=== PATIENT | male | born 1990 | race Caucasian/White ===

== ENCOUNTER 2022-08-28 13:28 | Emergency (ER) | payer SELFPAY ==
[2022-08-28] VITALS (8 sets, daily range): BP systolic 95–117; BP diastolic 57–78; PULSE 60–81; RESP 17–20; TEMP 36.7–37; O2SAT 94–100; BMI 21.1
--- NOTE | 2022-08-28 13:53 | HMH.EDGENADL ---
Discharge Plan Disposition Patient Disposition: Home, Self-Care Condition: Good Chief Complaint: Weakness Referrals Follow up/Referrals: Provider,Hima, [Primary Care Provider] - See instructions Prisca Miller DO [Staff Physician] - See instructions (Follow up to establish care after ER, needs soon appt given hx of adrenal issues) Activity Restrictions/Add. Instructions Additional Instructions/Restrictions: Continue to use your stress dose steroids follow-up with primary care physician to establish ongoing management of laboratory data and your congenital condition. Return to the ER for any new or worsening symptoms. Clinical Impressions Clinical Impression: Adrenal insufficiency, Viral URI Instructions Patient Instructions: DI for Viral Upper Respiratory Infection -- Adult, Adrenal Crisis Discharge ED Provider: Ravi Liu General Adult HPI General Chief complaint: Weakness Stated complaint: Dehydration Time Seen by Provider: 08/28/22 13:44 Mode of Arrival: Ambulatory Limitations: No Limitations Description of Symptoms (Recalled from ER Triage Doc. by RN): PT WITH CONGENITAL ADRENAL HYPERPLASIA, STATES HE HAS FELT WEAK FOR A COUPLE DAYS. HAS TAKEN EXTRA STERIODS WITHOUT IMPROVEMENT History of Present Illness HPI narrative: 32-year-old male with a history of congenital adrenal hyperplasia presents with a complaint of feeling weak. Patient was here as a visitor in the department while his mother was being seen and decided to sign in. States that he has felt weak for a couple days has taken an extra dose of his fludrocortisone and prednisone with no relief. He denies vomiting states that he has had mild nausea has had congestion rhinorrhea and intermittent mild shortness of breath but no productive cough no fevers or chills. States that he is from [place] and has been here for several months has not established with a primary care provider was managed by a long-term prescription by an personnel director in [place]. He denies any other associated symptoms at this time. Related Data Allergies Allergy/AdvReac Type Severity Reaction Status Date / Time phenobarbital Allergy Verified 08/28/22 13:52 [facility] Medical History Congenital adrenal hyperplasia Family History Other No significant family history Social History Smoking Status: Never smoker alcohol intake: never current occupational status: employed Travel in the last 8 weeks: Inside the [place] ROS Obtained: Yes Systems reviewed as appropriate & no additional complaints except as documented Physical Exam General General appearance: alert and in no apparent distress Head Head exam: atraumatic and normocephalic ENT ENT exam: Present mucous membranes moist Neck Neck exam: Present trachea midline Chest Chest inspection: Present normal inspection Respiratory Respiratory exam: Present normal lung sounds bilaterally; Absent respiratory distress Cardiovascular Cardiovascular exam: Present regular rate Abdominal Exam Abdominal exam: Present soft; Absent distention or tenderness Neurological Exam Neurological exam: Present alert and oriented X3 Psychiatric Psychiatric exam: Present normal affect Skin Skin exam: Present warm, dry and intact Medical Decision Making Medical Records Medical records reviewed: Yes I reviewed the patient's medical records. Haile Inquiry Pt receiving controlled substance: No Vital Signs: 08/28/22 13:31 08/28/22 15:00 08/28/22 15:30 Temperature 98.1 F Temperature Source Oral Pulse Rate 71 64 Pulse Rate [Radial] 81 Respiratory Rate 17 20 18 Blood Pressure 103/72 L 104/70 L Blood Pressure [Right Arm] 103/71 L Blood Pressure Mean 79 76 Blood Pressure Mean [Right Arm] 81 Blood Pressure Source [Right Arm] Aut
--- NOTE | 2022-08-28 14:01 | PC.NURSE ---
DR. HOWARD AT BEDSIDE
--- NOTE | 2022-08-28 14:07 | XR_ITS ---
FINAL REPORT CLINICAL HISTORY: dyspnea FINDINGS: The heart size is normal. The mediastinum is within normal limits. There is no acute cardiopulmonary process. There is no pleural effusion. There is no pneumothorax. The bony thorax is intact. IMPRESSION: No acute cardiopulmonary process. Reviewed, Interpreted and Dictated by Petros Fofana III, MD Transcribed by Romain Powers Authenticated and . [facility]
[2022-08-28 14:13] LABS: Basophils # 0.2 K/mm3 (0-0.2); Basophils % 1.3 % (0.1-2.0); Eosinophils # 0.2 K/mm3 (0.0-0.4); Eosinophils % 1.9 % (0.1-12.0); Hematocrit 45.6 % (42.0-52.0); Lymphocytes # 1.6 K/mm3 (0.7-4.5); Lymphocytes % 12.9 % (10-50); Mean Corpuscular Hemoglobin 30.3 pg (27.0-31.2); Mean Corpuscular Volume 86.6 fl (80-94); Mean Platelet Volume 8.1 fl (7.4-10.4); Monocytes # 0.4 K/mm3 (0.1-1.0); Monocytes % 3.1 % (1.7-9.3); Neutrophils # 9.9 K/mm3 (1.8-7.8); Neutrophils % 80.8 % (37.0-80.0); Platelet Count 365 K/mm3 (142-424); Red Blood Count 5.27 M/mm3 (4.60-6.20); Red Cell Distribution Width 12.9 % (11.5-17.5); White Blood Count 12.2 K/mm3 (4.8-10.8)
--- NOTE | 2022-08-28 14:16 | PC.NURSE ---
XR AT BEDSIDE
[2022-08-28 14:17] LABS: Chloride 94 mmol/L (98-107)
[2022-08-28 14:18] LABS: Potassium 5.5 mmoL/L (3.5-5.1); Sodium 130 mmol/L (136-145)
[2022-08-28 14:20] LABS: Blood Urea Nitrogen 25 mg/dl (9-20); Creatinine Clearance Estimated 91 mL/min (50-200); Estimated Glomerular Filt Rate 70 ml/min (>60); GFR (African American) 85 ML/MIN (>60)
[2022-08-28 14:21] LABS: Anion Gap 17.5 mEq/L (5-15); Calcium 10.4 mg/dl (8.4-10.2); Carbon Dioxide 24 mmol/L (22.0-30.0); Glucose 131 mg/dl (74-100)
--- NOTE | 2022-08-28 14:28 | PC.NURSE ---
PT TO BR AT THIS TIME
[2022-08-28 14:39] LABS: Coronavirus 19, PCR Not Detected (NotDetected); Influenza A, PCR Not Detected (NotDetected); Influenza B, PCR Not Detected (NotDetected)
--- NOTE | 2022-08-28 15:07 | PC.NURSE ---
ROUNDED ON PT, NO NEEDS AT THIS TIME. CALL LIGHT WITHIN REACH
--- NOTE | 2022-08-28 16:18 | PC.NURSE ---
ROUNDED ON PT, REQUESTED SOMETHING TO EAT. DIETARY NOTIFIED. PT WITHOUT FURTHER NEEDS
--- NOTE | 2022-08-28 16:39 | PC.NURSE ---
ED MD AT BEDSIDE TO REEVALUATE PT
--- NOTE | 2022-08-28 17:00 | PC.NURSE ---
REGULAR SUPPER TRAY SET UP, PT WITHOUT NEEDS AT THIS TIME
--- NOTE | 2022-08-28 17:52 | PC.NURSE ---
ROUNDED ON PT, NO NEEDS AT THIS TIME
== END 2022-08-28 18:49 | disposition home or self-care (01) ==
PROVIDERS: Emergency Provider Student in an Organized Health Care Education/Training Program
DX: E27.49 Other adrenocortical insufficiency (principal); E25.0 Congenital adrenogenital disorders associated with enzyme deficiency; R53.1 Weakness; R06.02 Shortness of breath; Z20.822 Contact with and (suspected) exposure to COVID-19; J34.89 Other specified disorders of nose and nasal sinuses; R11.0 Nausea; Z88.0 Allergy status to penicillin
CPT/HCPCS: 71045; 80048; 85025; 96361; 96374; 96375; 99284; C9803; J2405; U0003; U0005

== ENCOUNTER 2022-11-27 12:47 | Emergency (ER) | payer OTHER, SELFPAY ==
[2022-11-27] VITALS (10 sets, daily range): BP systolic 76–97; BP diastolic 17–61; PULSE 51–65; RESP 15–20; TEMP 36.6–36.7; O2SAT 98–100; BMI 18.6
--- NOTE | 2022-11-27 13:00 | HMH.EDGENADL ---
Discharge Plan Disposition Patient Disposition: Home, Self-Care Condition: Fair Prescriptions Prescriptions: New fludrocortisone 0.1 mg tablet 0.1 mg PO BID Qty: 14 0RF ondansetron 8 mg tablet,disintegrating 8 mg PO QID PRN (Reason: Nausea And Vomiting) Qty: 16 0RF Referrals Follow up/Referrals: Provider,Referral, [Primary Care Provider] - See instructions Activity Restrictions/Add. Instructions Additional Instructions/Restrictions: Follow-up with a primary care physician within the next few days. Drink plenty of fluids. Take all medications as prescribed. Preferably start taking your fludrocortisone today before going to bed. Return to the emergency department immediately if you feel worse in any way. Clinical Impressions Clinical Impression: Adrenal insufficiency Discharge ED Provider: Nawaf Higuera General Adult HPI General Chief complaint: Weakness Stated complaint: vomiting,diarrhea Time Seen by Provider: 11/27/22 12:57 History of Present Illness HPI narrative: The patient presents to the emergency department complaining of nausea and vomiting for the last few days. He has a history of congenital adrenal hypoplasia and takes steroid supplementation daily. Over the last few days he has been vomiting up his medications. Therefore he was come to the emergency department for treatment. He feels a little bit dehydrated and generalized weakness. He denies any diarrhea. Related Data Previous Rx's Medication Instructions Recorded fludrocortisone 0.1 mg tablet 0.1 mg PO BID #14 tabs 11/27/22 ondansetron 8 mg disintegrating 8 mg PO QID PRN Nausea And 11/27/22 tablet Vomiting #16 tabs Allergies Allergy/AdvReac Type Severity Reaction Status Date / Time phenobarbital Allergy Verified 08/28/22 13:52 [facility] Disclaimer: The information contained in this section may have been updated after the patient was seen, as this information can be updated by other users. Medical History Congenital adrenal hyperplasia Family History Other No significant family history Social History Smoking Status: Current every day smoker alcohol intake: never current occupational status: employed Travel in the last 8 weeks: [place] the [place] ROS Obtained: Yes All systems reviewed & no additional complaints except as documented Physical Exam General General appearance: alert, in no apparent distress and other (Alopecia) Head Head exam: atraumatic Eye Eye exam: Present normal appearance ENT ENT exam: Present normal exam Neck Neck exam: Present normal inspection and full ROM; Absent tenderness or meningismus Chest Chest inspection: Present normal inspection and symmetric chest wall rise; Absent tenderness Respiratory Respiratory exam: Present normal lung sounds bilaterally; Absent respiratory distress or accessory muscle use Cardiovascular Cardiovascular exam: Present regular rate, normal rhythm and normal heart sounds Abdominal Exam Abdominal exam: Present soft and normal bowel sounds; Absent distention, tenderness, heel tap sign, Smith's sign, Rovsing's sign, tenderness at McBurney's Point or mass Extremities Exam Extremities exam: Present normal inspection and full ROM Back Exam Back exam: Present normal inspection; Absent CVA tenderness (R) or CVA tenderness (L) Neurological Exam Neurological exam: Present alert and oriented X3 Psychiatric Psychiatric exam: Present normal affect and normal mood Skin Skin exam: Present warm, dry, intact and normal color Medical Decision Making Haile Inquiry Pt receiving controlled substance: No Vital Signs: 11/27/22 12:49 11/27/22 13:31 11/27/22 14:00 Temperature 97.9 F Temperature Source Oral Pulse Rate 51 L 56 L Pulse Rate [Left] 65 Respiratory Rate 16 18 18
[2022-11-27 13:29] LABS: Basophils # 0.1 K/mm3 (0-0.2); Basophils % 1.5 % (0.1-2.0); Eosinophils # 0.3 K/mm3 (0.0-0.4); Eosinophils % 3.5 % (0.1-12.0); Hematocrit 46.4 % (42.0-52.0); Hemoglobin 16.4 g/dL (14.1-18.0); Lymphocytes # 2.8 K/mm3 (0.7-4.5); Lymphocytes % 31.5 % (10-50); Mean Corpuscular HGB Conc 35.5 g/dL (31.8-35.4); Mean Corpuscular Hemoglobin 30.6 pg (27.0-31.2); Mean Corpuscular Volume 86.3 fl (80-94); Mean Platelet Volume 8.1 fl (7.4-10.4); Monocytes # 0.6 K/mm3 (0.1-1.0); Monocytes % 6.8 % (1.7-9.3); Neutrophils % 56.7 % (37.0-80.0); Platelet Count 380 K/mm3 (142-424); Red Blood Count 5.37 M/mm3 (4.60-6.20); Red Cell Distribution Width 12.2 % (11.5-17.5); White Blood Count 8.9 K/mm3 (4.8-10.8)
[2022-11-27 13:34] LABS: Chloride 95 mmol/L (98-107); Potassium 4.7 mmoL/L (3.5-5.1)
[2022-11-27 13:35] LABS: Sodium 127 mmol/L (136-145)
[2022-11-27 13:37] LABS: Anion Gap 14.7 mEq/L (5-15); Blood Urea Nitrogen 20 mg/dl (9-20); Calcium 9.5 mg/dl (8.4-10.2); Carbon Dioxide 22 mmol/L (22.0-30.0); Creatinine Clearance Estimated 82 mL/min (50-200); Estimated Glomerular Filt Rate 70 ml/min (>60); GFR (African American) 85 ML/MIN (>60); Glucose 77 mg/dl (74-100)
--- NOTE | 2022-11-27 14:00 | PC.NURSE ---
rounded on pt at this time, given warm blanket and tv remote.
--- NOTE | 2022-11-27 15:53 | PC.NURSE ---
PT APPOINTMENT MADE WITH DR GREY 11/29/2022 AT 1000
== END 2022-11-27 16:05 | disposition home or self-care (01) ==
PROVIDERS: Emergency Provider Emergency Medicine
DX: E27.40 Unspecified adrenocortical insufficiency (principal); F17.210 Nicotine dependence, cigarettes, uncomplicated
CPT/HCPCS: 80048; 85025; 96361; 96374; 96375; 96376; 99285; J2405

== ENCOUNTER 2022-12-08 17:14 | Observation (INO) | payer OTHER, SELFPAY ==
[2022-12-08] VITALS (11 sets, daily range): BP systolic 88–103; BP diastolic 37–64; PULSE 58–77; RESP 18–20; TEMP 36.6–37.3; O2SAT 96–100; BMI 17.9
[2022-12-08 19:08] LABS: Alanine Aminotransferase 20 U/L (12-78); Albumin Level 4.6 g/dl (3.5-5.0); Albumin/Globulin Ratio 1.8 (1.1-1.8); Alkaline Phosphatase 41 U/L (38-126); Anion Gap 14.1 mEq/L (5-15); Aspartate Amino Transferase 45 U/L (17-59); Bilirubin,Total 0.9 mg/dl (0.2-1.3); Blood Urea Nitrogen 20 mg/dl (9-20); Carbon Dioxide 25 mmol/L (22.0-30.0); Chloride 92 mmol/L (98-107); Creatinine Clearance Estimated 79 mL/min (50-200); Estimated Glomerular Filt Rate 70 ml/min (>60); GFR (African American) 85 ML/MIN (>60); Globulin 2.5 g/dL (1.3-3.2); Glucose 74 mg/dl (74-100); Potassium 5.1 mmoL/L (3.5-5.1); Sodium 126 mmol/L (136-145); Total Protein,Serum 7.1 g/dl (6.3-8.2)
--- NOTE | 2022-12-08 19:36 | HMH.EDGENADL ---
Discharge Plan Disposition Patient Disposition: Home, Self-Care Condition: Good Prescriptions Prescriptions: No Action fludrocortisone 0.1 mg tablet 0.1 mg PO BID Referrals Follow up/Referrals: Provider,Referral, MD [Primary Care Provider] - See instructions Clinical Impressions Clinical Impression: Adrenal insufficiency, Encounter for medication refill, Nausea & vomiting Instructions Patient Instructions: DI for Diarrhea and Traveler's Diarrhea -- Adult, DI for Diarrhea and Traveler's Diarrhea -- Child, DI for Nausea -- Adult, DI for Nausea -- Child Discharge ED Provider: Terry Teran General Adult HPI <Andi Leach DO - Last Filed: 12/08/22 19:43> General Chief complaint: Nausea/Vomiting/Diarrhea Stated complaint: NEEDS MEDS TO BE REFILLED Time Seen by Provider: 12/08/22 18:47 Mode of Arrival: Ambulatory Source of Information: Patient Limitations: No Limitations Description of Symptoms (Recalled from ER Triage Doc. by RN): PT STATES HE HAS HAD VOMITING, DECREASED APPETITIE, AND FATIGUE FOR 2 DAYS, DENIES FEVER, STATES HE HAS CONGENTIAL ADRENAL DEFIENCY DISORDER AND HAS BEEN OUT OF HIS MEDS FOR 7 DAYS History of Present Illness HPI narrative: 32yo M presents to the ER secondary to vomiting. Reports he has congenital primary adrenal insufficiency disorder and has been out of his home medication for 7 days. Does not have a local PCP after moving here from [place] 7 months ago. Denies fever or known sick contact. Reports he has 2 prednisone tablets left but is too nauseated to keep anything down. Related Data Home Medications Medication Instructions Recorded Confirmed fludrocortisone 0.1 mg tablet 0.1 mg PO BID . 12/08/22 12/08/22 Allergies Allergy/AdvReac Type Severity Reaction Status Date / Time phenobarbital Allergy Verified 12/08/22 18:09 PFSH <Andi Leach DO - Last Filed: 12/08/22 19:43> [facility] Disclaimer: The information contained in this section may have been updated after the patient was seen, as this information can be updated by other users. Medical History Congenital adrenal hyperplasia Family History Other No significant family history Social History (Reviewed 12/08/22 @ 19:38 by ASYA Johnson Smoking Status: Current every day smoker alcohol intake: never current occupational status: employed Travel in the last 8 weeks: [place] the [place] <Andi Leach DO - Last Filed: 12/08/22 19:43> ROS Obtained: Yes Systems reviewed as appropriate & no additional complaints except as documented Physical Exam <Andi Leach DO - Last Filed: 12/08/22 19:43> General General appearance: alert Head Head exam: atraumatic Eye Eye exam: Present normal appearance ENT ENT exam: Present normal exam Neck Neck exam: Present normal inspection Chest Chest inspection: Present normal inspection Respiratory Respiratory exam: Present normal lung sounds bilaterally; Absent respiratory distress or wheezes Cardiovascular Cardiovascular exam: Present regular rate, normal rhythm and normal heart sounds Abdominal Exam Abdominal exam: Present soft; Absent distention, tenderness or guarding Extremities Exam Extremities exam: Present normal inspection and normal capillary refill Neurological Exam Neurological exam: Present alert, oriented X3 and CN II-XII intact Psychiatric Psychiatric exam: Present normal affect Skin Skin exam: Present warm Lymphatic Lymphatic Findings: no adenopathy Medical Decision Making <Andi Leach DO - Last Filed: 12/08/22 19:43> Medical Records Medical records reviewed: Yes I reviewed the patient's medical records. Haile Inquiry Pt receiving controlled substance: No Vital Signs: 12/08/22 18:00 12/08/22 18:18 12/08/22 18:16 Temperature 99.1 F 99.1 F Temperature Source Oral Oral Pulse Rate 65 Pulse Rate [Right Radial] 7
[2022-12-08 19:37] LABS: Basophils # 0.1 K/mm3 (0-0.2); Basophils % 1.2 % (0.1-2.0); Eosinophils # 0.4 K/mm3 (0.0-0.4); Eosinophils % 3.8 % (0.1-12.0); Hematocrit 43.3 % (42.0-52.0); Hemoglobin 14.6 g/dL (14.1-18.0); Lymphocytes # 3.3 K/mm3 (0.7-4.5); Lymphocytes % 31.3 % (10-50); Mean Corpuscular HGB Conc 33.7 g/dL (31.8-35.4); Mean Corpuscular Hemoglobin 29.4 pg (27.0-31.2); Mean Corpuscular Volume 87.2 fl (80-94); Mean Platelet Volume 7.8 fl (7.4-10.4); Monocytes # 0.7 K/mm3 (0.1-1.0); Monocytes % 6.5 % (1.7-9.3); Neutrophils % 57.3 % (37.0-80.0); Platelet Count 358 K/mm3 (142-424); Red Blood Count 4.97 M/mm3 (4.60-6.20); Red Cell Distribution Width 12.2 % (11.5-17.5); White Blood Count 10.5 K/mm3 (4.8-10.8)
--- NOTE | 2022-12-08 20:25 | PC.NURSE ---
s/w hospitalist for admission. hospitalist would like a repeat BMP & UDS on pt.
--- NOTE | 2022-12-08 20:46 | PC.NURSE ---
Dr. Teran at bedside
[2022-12-08 21:13] LABS: Coronavirus 19, PCR Not Detected (NotDetected); Influenza A, PCR Not Detected (NotDetected); Influenza B, PCR Not Detected (NotDetected)
[2022-12-08 21:22] LABS: Anion Gap 8.5 mEq/L (5-15); Blood Urea Nitrogen 19 mg/dl (9-20); Calcium 8.2 mg/dl (8.4-10.2); Carbon Dioxide 25 mmol/L (22.0-30.0); Chloride 95 mmol/L (98-107); Creatinine Clearance Estimated 79 mL/min (50-200); Estimated Glomerular Filt Rate 70 ml/min (>60); GFR (African American) 85 ML/MIN (>60); Glucose 96 mg/dl (74-100); Potassium 4.5 mmoL/L (3.5-5.1); Sodium 124 mmol/L (136-145)
--- NOTE | 2022-12-08 21:56 | PC.NURSE ---
urine collected and sent to lab
[2022-12-08 22:32] LABS: Amphetamine/Metha Screen,Urine Negative ng/ml (<1000); Barbiturates Screen,Urine Negative ng/ml (<200); Benzodiazepines Screen,Urine Negative ng/ml (<200); Cannabinoid Screen,Urine Positive ng/ml (<50); Cocaine Screen,Urine Negative ng/ml (<300); Methadone Screen,Urine Negative ng/ml (<300); Opiate Screen,Urine Negative ng/ml (<300); Phencyclidine Screen,Urine Negative ng/ml (<25)
--- NOTE | 2022-12-08 22:45 | PC.NURSE ---
s/w hospitalist with new results, agrees to admit
--- NOTE | 2022-12-08 23:10 | PC.NURSE ---
House notified for bed assignment
--- NOTE | 2022-12-08 23:23 | EXP.HP ---
History of Present Illness *Admission Date: 12/08/22 *Reason for visit:: Chief complaint: Nausea and vomiting *History of present illness: This is a 32-year-old male that presents to [facility] emergency department with concerns of nausea and vomiting for a few days and not improving. His past medical history is significant for adrenal insufficiency, BMI 18, tobacco dependence and marijuana dependence. He reports that he ran out of his adrenal insufficiency medication 7 days ago. He reports that he started experiencing nausea and vomiting and weakness with no associated retrosternal chest pain, palpitations confusions or falls. He reports that he smokes marijuana once or twice a month and has never experienced nausea and vomiting with marijuana use. In the ED his sodium was initially 126. He received fluid resuscitation with IV hydrocortisone and observed. A repeat BMP identified a sodium of 124 with normal potassium and creatinine. ED nursing staff continue to identify hypotension. [facility] Disclaimer: The information contained in this section may have been updated after the patient was seen, as this information can be updated by other users. Medical History (Updated 12/09/22 @ 00:22 by Lg Del Rosario MD) Adrenal insufficiency Congenital adrenal hyperplasia Marijuana dependence Surgical History (Updated 12/09/22 @ 00:20 by Lg Del Rosario MD) No pertinent past surgical history Family History Other No significant family history Social History (Updated 12/09/22 @ 00:14 by Isabela Berrios RN) Smoking Status: Current every day smoker alcohol intake: current current occupational status: employed Travel in the last 8 weeks: [place] the [place] Review of Systems Review of Systems Review of systems:: pertinent systems reviewed and negative unless documented below *Gastrointestinal Gastrointestinal: Denies loose stools, Reports nausea and Reports vomiting Meds Home Medications and Allergies Home Medications Medication Instructions Recorded Confirmed Type fludrocortisone 0.1 mg tablet 0.1 mg PO BID . 12/08/22 12/08/22 History New Prescriptions to Start Prescriptions: Allergies Allergy/AdvReac Type Severity Reaction Status Date / Time phenobarbital Allergy Verified 12/08/22 18:09 Exam Data for Last 24 hours Vital signs and Labs for Last 24 Hours: Temp Pulse Resp BP Pulse Ox 99.1 F 68 18 98/59 L 98 12/08/22 18:18 12/08/22 22:46 12/08/22 19:05 12/08/22 22:46 12/08/22 22:46 Laboratory Results - last 24 hr 12/08/22 18:33: Sodium 126 L, Potassium 5.1, Chloride 92 L, Carbon Dioxide 25, Anion Gap 14.1, BUN 20, Creatinine 1.20, Estimated Creat Clear 79, Estimated GFR 70, Est GFR ( Amer) 85, Glucose 74, Calcium 9.0, Total Bilirubin 0.9, AST 45, ALT 20, Alkaline Phosphatase 41, Total Protein 7.1, Albumin 4.6, Globulin 2.5, Albumin/Globulin Ratio 1.8 12/08/22 19:22: WBC 10.5, RBC 4.97, Hgb 14.6, Hct 43.3, MCV 87.2, MCH 29.4, MCHC 33.7, RDW 12.2, Plt Count 358, MPV 7.8, Neut % (Auto) 57.3, Lymph % (Auto) 31.3, Oliver % (Auto) 6.5, Eos % (Auto) 3.8, Baso % (Auto) 1.2, Neut # (Auto) 6.0, Lymph # (Auto) 3.3, Oliver # (Auto) 0.7, Eos # (Auto) 0.4, Baso # (Auto) 0.1 12/08/22 21:07: SARS-CoV-2 (PCR) Not detected, Influenza A Untype (PCR) Not detected, Influenza Type B (PCR) Not detected 12/08/22 21:07: Sodium 124 L, Potassium 4.5, Chloride 95 L, Carbon Dioxide 25, Anion Gap 8.5, BUN 19, Creatinine 1.20, Estimated Creat Clear 79, Estimated GFR 70, Est GFR ( Amer) 85, Glucose 96 D, Calcium 8.2 L 12/08/22 22:00: Urine Opiates Screen Negative, Urine Methadone Screen Negative, Ur Barbituates Screen Negative, Ur Phencyclidine Scrn Negative, Ur Amphetamines Screen Negative, U Benzodiazepines Scrn Negative, Urine Cocaine Screen Negative, U Marijuana (THC) Screen Positive H I & O for Last 24 hours: Intake & Output
--- NOTE | 2022-12-08 23:45 | PC.NURSE ---
hospitalist at bedside
[2022-12-09 00:10] VITALS: BP 89/48; PULSE 61; RESP 18; TEMP 37; O2SAT 100; BMI 19.8
[2022-12-09 04:00] VITALS: BP 85/47; PULSE 64; RESP 16; TEMP 36.7; O2SAT 98; BMI 19.8
--- NOTE | 2022-12-09 04:36 | PC.NURSE ---
pt has rested well through the night. a&ox4. stable on RA. no complaints of nausea or pain. patient showered and has ate a couple cups of broth and tolerated well. bp has been running low but that has been what patient has been since coming to hospital.
--- NOTE | 2022-12-09 07:44 | EXP.PN ---
Subjective *Date: 12/09/22 *Time: 11:39 Interval history: Date of service December 09, 2022 The patient reports no acute events since admission. He has experienced no further nausea or vomiting. He denies diarrhea. He reports no fever chills or abdominal pain. Nursing staff report that he remains afebrile with stable vital signs including chronic low blood pressures and saturating appropriately on room air. He is tolerating a diet with no further symptomatology. His morning labs identify an improved sodium and elevated potassium. Exam Data for Last 24 hours Vital signs and Labs for Last 24 Hours: Temp Pulse Resp BP Pulse Ox 98.0 F 64 16 85/47 L 98 12/09/22 04:00 12/09/22 04:00 12/09/22 04:00 12/09/22 04:00 12/09/22 04:00 Laboratory Results - last 24 hr 12/08/22 18:33: Sodium 126 L, Potassium 5.1, Chloride 92 L, Carbon Dioxide 25, Anion Gap 14.1, BUN 20, Creatinine 1.20, Estimated Creat Clear 79, Estimated GFR 70, Est GFR ( Amer) 85, Glucose 74, Calcium 9.0, Total Bilirubin 0.9, AST 45, ALT 20, Alkaline Phosphatase 41, Total Protein 7.1, Albumin 4.6, Globulin 2.5, Albumin/Globulin Ratio 1.8 12/08/22 19:22: WBC 10.5, RBC 4.97, Hgb 14.6, Hct 43.3, MCV 87.2, MCH 29.4, MCHC 33.7, RDW 12.2, Plt Count 358, MPV 7.8, Neut % (Auto) 57.3, Lymph % (Auto) 31.3, Pen[place]ton % (Auto) 6.5, Eos % (Auto) 3.8, Baso % (Auto) 1.2, Neut # (Auto) 6.0, Lymph # (Auto) 3.3, [place]ton # (Auto) 0.7, Eos # (Auto) 0.4, Baso # (Auto) 0.1 12/08/22 21:07: SARS-CoV-2 (PCR) Not detected, Influenza A Untype (PCR) Not detected, Influenza Type B (PCR) Not detected 12/08/22 21:07: Sodium 124 L, Potassium 4.5, Chloride 95 L, Carbon Dioxide 25, Anion Gap 8.5, BUN 19, Creatinine 1.20, Estimated Creat Clear 79, Estimated GFR 70, Est GFR ( Amer) 85, Glucose 96 D, Calcium 8.2 L 12/08/22 22:00: Urine Opiates Screen Negative, Urine Methadone Screen Negative, Ur Barbituates Screen Negative, Ur Phencyclidine Scrn Negative, Ur Amphetamines Screen Negative, U Benzodiazepines Scrn Negative, Urine Cocaine Screen Negative, U Marijuana (THC) Screen Positive H I & O for Last 24 hours: Intake & Output 12/06/22 12/07/22 12/08/22 12/09/22 23:59 23:59 23:59 23:59 Intake Total 100 / 100 Output Total 0 / 0 Balance 100 / 100 Weight 63.503 kg 70.08 kg Constitutional Constitutional: no acute distress and cooperative *Routine HEENT Exam Head: Present normocephalic Eye: Present EOMI and PERRL ENT: Present mucous membranes moist *Routine Neck Exam Neck: Present supple; Absent lymphadenopathy *Routine Respiratory Exam Respiratory: Present CTA bilaterally, normal respiratory effort and symmetric chest movement *Routine Cardiovascular Exam Cardiovascular: Present RRR *Routine Abdominal Exam Abdominal: Present soft and normoactive bowel sounds; Absent tenderness *Routine Extremities Exam Extremities: Present full ROM, pulses intact and normal capillary refill; Absent cyanosis, clubbing or edema *Routine Skin Exam Skin: Present warm; Absent rash *Routine Neurological Exam Neurological: Present alert, oriented X3, moving all extremities, vision grossly intact, hearing grossly intact and normal speech Routine Psychiatric Exam Psychiatric: Present normal affect, normal thought process, cooperative and good insight Assessment and Plan *Assessment and plan (1) Hyponatremia: Status: Acute Category: Medical Code(s): E87.1 - Hypo-osmolality and hyponatremia (2) Adrenal insufficiency: Status: Acute Category: Medical Code(s): E27.40 - Unspecified adrenocortical insufficiency (3) Hypotension: Status: Acute Category: Medical Code(s): I95.9 - Hypotension, unspecified (4) Marijuana dependence: Status: Acute Category: Medical Code(s): F12.20 - Cannabis dependence, uncomplicated Plan This is a 32-year-old male that normally lives in [place] and is in [place] for a job that he recently los
[2022-12-09 08:00] VITALS: BP 98/62; PULSE 58; RESP 18; TEMP 37; O2SAT 94
[2022-12-09 08:16] LABS: Anion Gap 9.2 mEq/L (5-15); Blood Urea Nitrogen 16 mg/dl (9-20); Calcium 8.1 mg/dl (8.4-10.2); Carbon Dioxide 24 mmol/L (22.0-30.0); Chloride 104 mmol/L (98-107); Creatinine Clearance Estimated 96 mL/min (50-200); Estimated Glomerular Filt Rate 78 ml/min (>60); GFR (African American) 94 ML/MIN (>60); Glucose 112 mg/dl (74-100); Magnesium 1.8 mg/dl (1.6-2.3); Phosphorous 3.9 mg/dl (2.5-4.5); Sodium 131 mmol/L (136-145)
[2022-12-09 08:22] LABS: Potassium 6.2 mmoL/L (3.5-5.1)
--- NOTE | 2022-12-09 08:40 | PC.NURSE ---
critical potassium called to
[2022-12-09 12:10] VITALS: PULSE 56; PULSE 60
[2022-12-09 15:32] LABS: Anion Gap 5.8 mEq/L (5-15); Blood Urea Nitrogen 14 mg/dl (9-20); Calcium 7.9 mg/dl (8.4-10.2); Carbon Dioxide 23 mmol/L (22.0-30.0); Chloride 107 mmol/L (98-107); Creatinine Clearance Estimated 96 mL/min (50-200); Estimated Glomerular Filt Rate 78 ml/min (>60); GFR (African American) 94 ML/MIN (>60); Glucose 107 mg/dl (74-100); Potassium 3.8 mmoL/L (3.5-5.1); Sodium 132 mmol/L (136-145)
--- NOTE | 2022-12-09 15:45 | EXP.DC.SUM ---
General Admission date:: 12/09/22 Discharge date: 12/09/22 HPI HPI HPI: This is a 32-year-old male that presents to [facility] emergency department with concerns of nausea and vomiting for a few days and not improving. His past medical history is significant for adrenal insufficiency, BMI 18, tobacco dependence and marijuana dependence. He reports that he ran out of his adrenal insufficiency medication 7 days ago. He reports that he started experiencing nausea and vomiting and weakness with no associated retrosternal chest pain, palpitations confusions or falls. He reports that he smokes marijuana once or twice a month and has never experienced nausea and vomiting with marijuana use. In the ED his sodium was initially 126. He received fluid resuscitation with IV hydrocortisone and observed. A repeat BMP identified a sodium of 124 with normal potassium and creatinine. ED nursing staff continue to identify hypotension. Hospital Course Hospital Course Hospital Course: The patient was admitted to the medical floor with ongoing therapy for his adrenal insufficiency. His laboratory studies were trended and identified improvement. His discharge sodium was 132, potassium 3.8, BUN 14 and creatinine 1.1. The patient identified improvement and inquired about discharge home. He reported he needed a refill of his medication. He is advised to follow-up with a local PCP and see an deburrer strip concerning his chronic diagnoses. I have recommended complete tobacco and marijuana cessation. Exam Data for Last 24 hours Vital signs and Labs for Last 24 Hours: Temp Pulse Resp BP Pulse Ox 98.6 F 56 L 18 98/62 L 94 L 12/09/22 08:00 12/09/22 12:10 12/09/22 08:00 12/09/22 08:00 12/09/22 08:00 Laboratory Results - last 24 hr 12/08/22 18:33: Sodium 126 L, Potassium 5.1, Chloride 92 L, Carbon Dioxide 25, Anion Gap 14.1, BUN 20, Creatinine 1.20, Estimated Creat Clear 79, Estimated GFR 70, Est GFR ( Amer) 85, Glucose 74, Calcium 9.0, Total Bilirubin 0.9, AST 45, ALT 20, Alkaline Phosphatase 41, Total Protein 7.1, Albumin 4.6, Globulin 2.5, Albumin/Globulin Ratio 1.8 12/08/22 19:22: WBC 10.5, RBC 4.97, Hgb 14.6, Hct 43.3, MCV 87.2, MCH 29.4, MCHC 33.7, RDW 12.2, Plt Count 358, MPV 7.8, Neut % (Auto) 57.3, Lymph % (Auto) 31.3, [place] % (Auto) 6.5, Eos % (Auto) 3.8, Baso % (Auto) 1.2, Neut # (Auto) 6.0, Lymph # (Auto) 3.3, [place] # (Auto) 0.7, Eos # (Auto) 0.4, Baso # (Auto) 0.1 12/08/22 21:07: SARS-CoV-2 (PCR) Not detected, Influenza A Untype (PCR) Not detected, Influenza Type B (PCR) Not detected 12/08/22 21:07: Sodium 124 L, Potassium 4.5, Chloride 95 L, Carbon Dioxide 25, Anion Gap 8.5, BUN 19, Creatinine 1.20, Estimated Creat Clear 79, Estimated GFR 70, Est GFR ( Amer) 85, Glucose 96 D, Calcium 8.2 L 12/08/22 22:00: Urine Opiates Screen Negative, Urine Methadone Screen Negative, Ur Barbituates Screen Negative, Ur Phencyclidine Scrn Negative, Ur Amphetamines Screen Negative, U Benzodiazepines Scrn Negative, Urine Cocaine Screen Negative, U Marijuana (THC) Screen Positive H 12/09/22 07:55: Sodium 131 L, Potassium 6.2 H* D, Chloride 104, Carbon Dioxide 24, Anion Gap 9.2, BUN 16, Creatinine 1.10, Estimated Creat Clear 96, Estimated GFR 78, Est GFR ( Amer) 94, Glucose 112 H, Calcium 8.1 L, Phosphorus 3.9, Magnesium 1.8 12/09/22 15:05: Sodium 132 L, Potassium 3.8 D, Chloride 107, Carbon Dioxide 23, Anion Gap 5.8, BUN 14, Creatinine 1.10, Estimated Creat Clear 96, Estimated GFR 78, Est GFR ( Amer) 94, Glucose 107 H, Calcium 7.9 L I & O for Last 24 hours: Intake & Output 12/06/22 12/07/22 12/08/22 12/09/22 23:59 23:59 23:59 23:59 Intake Total 1180 / 1180 Output Total 250 / 250 Balance 930 / 930 Weight 63.503 kg 70.08 kg Constitutional Constitutional: no acute distress and cooperative *Routine HEENT Exam Head: Present normocephalic Eye: Present EOMI and PERRL ENT: Present mucous membranes moist
[2022-12-09 16:00] VITALS: BP 87/53; PULSE 58; RESP 18; TEMP 36.9; O2SAT 100
--- NOTE | 2022-12-09 17:20 | PC.NURSE ---
PT HAS BEEN DISCAHRGED FROM THE FACILITY. vOICED UNDERSTANDING OF ALL DISCAHRGE EDUCATION AND FOLLOW UP APPS. SALINE LOC X2 REMOVED. PT HAS HAD NO EPISODES OF NAUSEA OR VOMITING.
[2022-12-10 11:08] LABS: Sodium, Urine 55 mmol/L (Not Estab.)
--- NOTE | 2022-12-11 13:36 | CARE MANAGER ---
Spoke with patient related to hospital discharge. Patient has not picked up medication but will tomorrow when he gets paid. He does not have PCP and we went over different physicians he could call in order to do that. We also discussed his Medicaid and he is going to be in touch with soo Mckeon regarding that. Denies any other questions or concerns. DONNIE Johnston
[2022-12-12 14:21] LABS: Osmolality, Urine 220 mOsmol/kg (.)
== END 2022-12-09 16:10 | disposition home or self-care (01) ==
LOC: UTC 17:19 → ER 18:11 → 2ND 12-09 02:55
PROVIDERS: Family Medicine; Admitting Provider Family Medicine; Emergency Provider Student in an Organized Health Care Education/Training Program; Visit Provider Family Medicine
DX: E25.0 Congenital adrenogenital disorders associated with enzyme deficiency (principal); I95.9 Hypotension, unspecified; F17.210 Nicotine dependence, cigarettes, uncomplicated; Z20.822 Contact with and (suspected) exposure to COVID-19
CPT/HCPCS: 36415; 80048; 80053; 80305; 83735; 83930; 83935; 84100; 84300; 85025; 94640; 99285; C9803; G0378; J2405; U0003; U0005

== ENCOUNTER 2022-12-24 12:24 | Observation (INO) | payer OTHER, SELFPAY ==
[2022-12-24] VITALS (14 sets, daily range): BP systolic 79–97; BP diastolic 31–55; PULSE 64–88; RESP 17–20; TEMP 36.6–36.9; O2SAT 94–100; BMI 19.9; BMI 19.4
[2022-12-24 12:49] LABS: Basophils # 0.1 K/mm3 (0-0.2); Basophils % 1.2 % (0.1-2.0); Eosinophils # 0.5 K/mm3 (0.0-0.4); Eosinophils % 4.4 % (0.1-12.0); Hemoglobin 15.8 g/dL (14.1-18.0); Lymphocytes # 3.8 K/mm3 (0.7-4.5); Lymphocytes % 36.2 % (10-50); Mean Corpuscular HGB Conc 34.5 g/dL (31.8-35.4); Mean Corpuscular Hemoglobin 29.8 pg (27.0-31.2); Mean Corpuscular Volume 86.6 fl (80-94); Mean Platelet Volume 7.9 fl (7.4-10.4); Monocytes # 0.7 K/mm3 (0.1-1.0); Monocytes % 6.7 % (1.7-9.3); Neutrophils # 5.4 K/mm3 (1.8-7.8); Neutrophils % 51.5 % (37.0-80.0); Platelet Count 397 K/mm3 (142-424); Red Blood Count 5.31 M/mm3 (4.60-6.20); Red Cell Distribution Width 12.5 % (11.5-17.5); White Blood Count 10.6 K/mm3 (4.8-10.8)
[2022-12-24 12:51] LABS: Chloride 95 mmol/L (98-107); Potassium 4.6 mmoL/L (3.5-5.1); Sodium 128 mmol/L (136-145)
[2022-12-24 12:54] LABS: Alanine Aminotransferase 25 U/L (12-78); Albumin Level 4.7 g/dl (3.5-5.0); Albumin/Globulin Ratio 1.7 (1.1-1.8); Alkaline Phosphatase 64 U/L (38-126); Anion Gap 10.6 mEq/L (5-15); Aspartate Amino Transferase 45 U/L (17-59); Bilirubin,Total 0.9 mg/dl (0.2-1.3); Blood Urea Nitrogen 22 mg/dl (9-20); Calcium 9.5 mg/dl (8.4-10.2); Carbon Dioxide 27 mmol/L (22.0-30.0); Creatinine Clearance Estimated 66 mL/min (50-200); Estimated Glomerular Filt Rate 50 ml/min (>60); GFR (African American) 61 ML/MIN (>60); Globulin 2.7 g/dL (1.3-3.2); Glucose 102 mg/dl (74-100); Total Protein,Serum 7.4 g/dl (6.3-8.2)
--- NOTE | 2022-12-24 13:32 | PC.NURSE ---
ER AT BEDSIDE
--- NOTE | 2022-12-24 13:39 | HMH.EDGENADL ---
Discharge Plan Disposition Patient Disposition: Admitted as Observation Condition: Fair Chief Complaint: Nausea/Vomiting/Diarrhea Prescriptions Prescriptions: No Action fludrocortisone 0.1 mg tablet 0.1 mg PO DAILY Referrals Follow up/Referrals: Provider,Referral, [Primary Care Provider] - See instructions Clinical Impressions Clinical Impression: Adrenal insufficiency, Acute hypotension, SUNIL (acute kidney injury) Instructions Patient Instructions: DI for Diarrhea and Traveler's Diarrhea -- Adult, DI for Diarrhea and Traveler's Diarrhea -- Child, DI for Nausea -- Adult, DI for Nausea -- Child Discharge ED Provider: Manuel Hilton General Adult HPI General Chief complaint: Nausea/Vomiting/Diarrhea Stated complaint: can't eat, vomiting, dehydrated Time Seen by Provider: 12/24/22 13:30 Mode of Arrival: Ambulatory Source of Information: Patient Limitations: No Limitations Description of Symptoms (Recalled from ER Triage Doc. 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 States that he has been out of prednisone for about 3 to 4 weeks. Past couple of days he has had vomiting, diarrhea, epigastric pain. States he is unable to eat or hold on his medication. States that he is on Florinef. States that he has a history of an ulcer, previously on pantoprazole, but no longer taking. He says when he vomits a lot it aggravates his ulcer and he now has epigastric pain. He is not vomiting blood. No blood in his stool. No fever. States that he now has insurance and is going to see a primary care provider tomorrow. Related Data Home Medications Medication Instructions Recorded Confirmed fludrocortisone 0.1 mg tablet 0.1 mg PO DAILY . 12/24/22 12/24/22 Allergies Allergy/AdvReac Type Severity Reaction Status Date / Time phenobarbital Allergy Verified 12/08/22 18:09 [facility] Disclaimer: The information contained in this section may have been updated after the patient was seen, as this information can be updated by other users. Medical History (Updated 12/24/22 @ 16:07 by Manuel Hilton MD) Adrenal insufficiency Congenital adrenal hyperplasia Marijuana dependence Surgical History (Updated 12/09/22 @ 00:20 by Lg Del Rosario MD) No pertinent past surgical history Family History Other No significant family history Social History (Updated 12/09/22 @ 00:14 by Isabela Berrios RN) Smoking Status: Current every day smoker alcohol intake: current current occupational status: employed Travel in the last 8 weeks: Inside the [place] ROS Obtained: Yes Systems reviewed as appropriate & no additional complaints except as documented Constitutional Constitutional: Denies fever(s), Denies headache(s) and Denies weakness ENT Ears, Nose, Mouth, and Throat: Denies headache(s), Denies nasal discharge and Denies sore throat Cardiovascular Cardiovascular: Denies chest pain Respiratory Respiratory: Denies shortness of breath and Denies cough Gastrointestinal Gastrointestingal: Reports abdominal pain, diarrhea and vomiting; Denies constipation Genitourinary Male Genitourinary: Denies difficulty urinating and Denies flank pain Musculoskeletal Musculoskeletal: Denies numbness Neurologic Neurologic: Denies headache(s), Denies numbness and Denies weakness Physical Exam General General appearance: alert and in no apparent distress Comment: Lips dry Head Head exam: atraumatic and norm
[2022-12-24 13:45] LABS: Lipase 174 U/L (23-300)
--- NOTE | 2022-12-24 13:50 | PC.NURSE ---
GAVE PT MEDICATIONS PER ER MD ORDER. NOT AVAILABLE ON THE DEC AT THIS TIME TO SCAN OFF. Christiano SURESH RN VERIFIED MEDICATIONS WITH THIS RN. MIS AWARE OF SITUATION AND TRYING TO FIX IT.
--- NOTE | 2022-12-24 13:52 | PC.NURSE ---
PROVIDED PT WITH CUP OF ICE. RESTING IN BED. NO QUESTIONS OR CONCERNS VOICED AT THIS TIME. CALL LIGHT WITHIN REACH.
--- NOTE | 2022-12-24 14:50 | PC.NURSE ---
PROVIDED PT WITH [facility] PER HIS REQUEST. OFFERED BLANKET AND HE DENIED. SENT URINE TO LAB. CALL LIGHT WITHIN REACH. BED IN LOWEST POSITION.
[2022-12-24 14:59] LABS: Microscopic, Urine URINE MICROSCOPIC (MICROSCOPIC)
--- NOTE | 2022-12-24 15:05 | PC.NURSE ---
PROVIDED PT WITH 2 MORE WARM BLANKETS.
[2022-12-24 15:06] LABS: Appearance,Urine CLEAR (Clear); Bilirubin,Urine Negative (Negative); Blood, Urine Negative (Negative); Color,Urine YELLOW (Yellow); Glucose,Urine (UA) Negative (Negative); Ketones,Urine Negative (Negative); Leukocyte Esterase,Urine Negative (Negative); Nitrate,Urine Negative (Negative); PH,Urine 5.5 (5.0-8.5); Protein,Urine Negative (Negative); Urobilinogen,Urine 0.2 EU/dl (0.2)
[2022-12-24 15:16] LABS: Benzodiazepines Screen,Urine Negative ng/ml (<200)
[2022-12-24 15:17] LABS: Amphetamine/Metha Screen,Urine Negative ng/ml (<1000)
[2022-12-24 15:18] LABS: Cannabinoid Screen,Urine Positive ng/ml (<50); Cocaine Screen,Urine Negative ng/ml (<300)
[2022-12-24 15:19] LABS: Methadone Screen,Urine Negative ng/ml (<300)
[2022-12-24 15:20] LABS: Opiate Screen,Urine Negative ng/ml (<300); Phencyclidine Screen,Urine Negative ng/ml (<25)
[2022-12-24 15:21] LABS: Squamous Epithelial Cell,Urine Occasional #/hpf (0-5)
[2022-12-24 15:23] LABS: Barbiturates Screen,Urine Negative ng/ml (<200)
--- NOTE | 2022-12-24 16:08 | PC.NURSE ---
called house for admission
[2022-12-24 16:13] LABS: Coronavirus 19, PCR Not Detected (NotDetected); Influenza A, PCR Not Detected (NotDetected); Influenza B, PCR Not Detected (NotDetected)
--- NOTE | 2022-12-24 16:21 | EXP.HP ---
History of Present Illness *Admission Date: 12/24/22 *Reason for visit:: Weakness; nausea vomiting diarrhea *History of present illness: Mr. Kendrick is a 32-year-old male that presents to [facility] emergency department with concerns of nausea and vomiting for a few days and not improving. Of note he has presented several times over the past month with a recent admission 2 weeks ago for similar presentation. Significant past medical history for congenital adrenal hypoplasia/adrenal insufficiency. Reports that he has been taking only his fludrocortisone as he has not been able to get prednisone or hydrocortisone for the past 2 or more weeks. States that he has been experiencing nausea, vomiting, weakness that worsened over the past 2 weeks to the point he came into the ER for evaluation. In the ED sodium noted to be initially 128. Received 2 IVs because of hypotension with systolics in the 80s. Started on hydrocortisone with 100 mg IV x1. Denies fever, chest pain, confusion. ER consulted medicine for admission due to hypotension and adrenal crisis. Patient admitted for IV steroids, fluid management, treatment of adrenal insufficiency. After arriving to the floor, patient states he is generally just felt weak. He is alert and oriented. Complaining of mild nausea but no emesis at this time. Denies any chest pain or shortness of breath. His girlfriend is with him at bedside. [facility] Disclaimer: The information contained in this section may have been updated after the patient was seen, as this information can be updated by other users. Medical History Adrenal insufficiency Congenital adrenal hyperplasia Marijuana dependence Surgical History No pertinent past surgical history Family History Other No significant family history Social History (Updated 12/24/22 @ 16:54 by Pilar Fritz RN) Smoking Status: Current every day smoker alcohol intake: current current occupational status: employed Travel in the last 8 weeks: Inside the [place] Review of Systems Review of Systems Review of systems (narrative): 14 point review of systems performed, pertinent positives and negatives as per HPI Constitutional Constitutional: Denies headache(s) and Denies weakness ENT Ears, Nose, Mouth, and Throat: Denies headache(s) *Musculoskeletal Musculoskeletal: Denies numbness *Neurologic Neurologic: Denies headache(s), Denies numbness and Denies weakness Meds Home Medications and Allergies Home Medications Medication Instructions Recorded Confirmed Type fludrocortisone 0.1 mg tablet 0.1 mg PO DAILY . 12/24/22 12/24/22 History prednisone 5 mg tablet 1.5 mg PO DAILY ADRENAL 12/24/22 12/24/22 History INSUFFICIENCY New Prescriptions to Start Prescriptions: Allergies Allergy/AdvReac Type Severity Reaction Status Date / Time phenobarbital Allergy Verified 12/08/22 18:09 Exam Data for Last 24 hours Vital signs and Labs for Last 24 Hours: Temp Pulse Resp BP Pulse Ox 98.2 F 67 18 80/40 L 99 12/24/22 12:30 12/24/22 15:30 12/24/22 15:00 12/24/22 15:30 12/24/22 15:30 Laboratory Results - last 24 hr 12/24/22 12:37: WBC 10.6, RBC 5.31, Hgb 15.8, Hct 46.0, MCV 86.6, MCH 29.8, MCHC 34.5, RDW 12.5, Plt Count 397, MPV 7.9, Neut % (Auto) 51.5, Lymph % (Auto) 36.2, [place] % (Auto) 6.7, Eos % (Auto) 4.4, Baso % (Auto) 1.2, Neut # (Auto) 5.4, Lymph # (Auto) 3.8, [place] # (Auto) 0.7, Eos # (Auto) 0.5 H, Baso # (Auto) 0.1 12/24/22 12:37: Sodium 128 L, Potassium 4.6, Chloride 95 L, Carbon Dioxide 27, Anion Gap 10.6, BUN 22 H, Creatinine 1.60 H, Estimated Creat Clear 66, Estimated GFR 50 L, Est GFR ( Amer) 61, Glucose 102 H, Calcium 9.5, Total Bilirubin 0.9, AST 45, ALT 25, Alkaline Phosphatase 64, Total Protein 7.4, A
--- NOTE | 2022-12-24 16:45 | PC.NURSE ---
CALLED REPORT TO ANGELINA FIELDS.
--- NOTE | 2022-12-24 17:10 | PC.NURSE ---
2ND FLOOR AWARE OF COVID SWAB BEING BACK.
--- NOTE | 2022-12-24 17:22 | PC.NURSE ---
Pt arrived to the floor at this time via w/c
[2022-12-24 18:15] LABS: POC Glucose,Bedside 98 (70-110)
[2022-12-24 21:31] LABS: POC Glucose,Bedside 177 (70-110)
[2022-12-24 21:32] LABS: Anion Gap 8.1 mEq/L (5-15); Blood Urea Nitrogen 19 mg/dl (9-20); Calcium 8.1 mg/dl (8.4-10.2); Carbon Dioxide 19 mmol/L (22.0-30.0); Chloride 107 mmol/L (98-107); Creatinine Clearance Estimated 86 mL/min (50-200); Estimated Glomerular Filt Rate 70 ml/min (>60); GFR (African American) 85 ML/MIN (>60); Glucose 157 mg/dl (74-100); Potassium 4.1 mmoL/L (3.5-5.1); Sodium 130 mmol/L (136-145)
[2022-12-25] VITALS: BP 84/37; PULSE 69; RESP 16; TEMP 36.9; O2SAT 100
[2022-12-25 02:00] VITALS: BP 94/45; PULSE 70; RESP 20; O2SAT 100
[2022-12-25 04:00] VITALS: BP 86/50; PULSE 68; RESP 19; TEMP 36.8; O2SAT 96; BMI 19.9
[2022-12-25 06:00] VITALS: BP 132/41; PULSE 69; PULSE 70; RESP 24; O2SAT 95
[2022-12-25 06:29] LABS: POC Glucose,Bedside 140 (70-110)
[2022-12-25 06:31] LABS: Chloride 107 mmol/L (98-107); Potassium 4.1 mmoL/L (3.5-5.1); Sodium 134 mmol/L (136-145)
[2022-12-25 06:32] LABS: Basophils % 0.4 % (0.1-2.0); Eosinophils % 0.4 % (0.1-12.0); Hematocrit 39.2 % (42.0-52.0); Lymphocytes # 1.2 K/mm3 (0.7-4.5); Lymphocytes % 14.1 % (10-50); Mean Corpuscular HGB Conc 32.7 g/dL (31.8-35.4); Mean Corpuscular Hemoglobin 29.2 pg (27.0-31.2); Mean Corpuscular Volume 89.2 fl (80-94); Mean Platelet Volume 8.2 fl (7.4-10.4); Monocytes # 0.2 K/mm3 (0.1-1.0); Monocytes % 1.9 % (1.7-9.3); Neutrophils # 7.1 K/mm3 (1.8-7.8); Neutrophils % 83.2 % (37.0-80.0); Platelet Count 301 K/mm3 (142-424); Red Cell Distribution Width 12.3 % (11.5-17.5); White Blood Count 8.6 K/mm3 (4.8-10.8)
[2022-12-25 06:33] LABS: Blood Urea Nitrogen 13 mg/dl (9-20); Creatinine Clearance Estimated 106 mL/min (50-200); Estimated Glomerular Filt Rate 87 ml/min (>60); GFR (African American) 105 ML/MIN (>60)
[2022-12-25 06:34] LABS: Alanine Aminotransferase 33 U/L (12-78); Albumin/Globulin Ratio 1.7 (1.1-1.8); Alkaline Phosphatase 48 U/L (38-126); Anion Gap 10.1 mEq/L (5-15); Aspartate Amino Transferase 58 U/L (17-59); Bilirubin,Total 0.5 mg/dl (0.2-1.3); Calcium 8.2 mg/dl (8.4-10.2); Carbon Dioxide 21 mmol/L (22.0-30.0); Globulin 2.3 g/dL (1.3-3.2); Glucose 155 mg/dl (74-100); Magnesium 1.7 mg/dl (1.6-2.3); Total Protein,Serum 6.3 g/dl (6.3-8.2)
[2022-12-25 06:40] LABS: Hemoglobin 12.9 g/dL (14.1-18.0)
--- NOTE | 2022-12-25 07:09 | EXP.DC.SUM ---
General Admission date:: 12/24/22 Discharge date: 12/25/22 HPI HPI HPI: Mr. Kendrick is a 32-year-old male that presents to [facility] emergency department with concerns of nausea and vomiting for a few days and not improving. Of note he has presented several times over the past month with a recent admission 2 weeks ago for similar presentation. Significant past medical history for congenital adrenal hypoplasia/adrenal insufficiency. Reports that he has been taking only his fludrocortisone as he has not been able to get prednisone or hydrocortisone for the past 2 or more weeks. States that he has been experiencing nausea, vomiting, weakness that worsened over the past 2 weeks to the point he came into the ER for evaluation. In the ED sodium noted to be initially 128. Received 2 IVs because of hypotension with systolics in the 80s. Started on hydrocortisone with 100 mg IV x1. Denies fever, chest pain, confusion. ER consulted medicine for admission due to hypotension and adrenal crisis. Patient admitted for IV steroids, fluid management, treatment of adrenal insufficiency. After arriving to the floor, patient states he is generally just felt weak. He is alert and oriented. Complaining of mild nausea but no emesis at this time. Denies any chest pain or shortness of breath. His girlfriend is with him at bedside. Hospital Course Hospital Course Hospital Course: This is a 32-year-old male that normally lives in [place] and is in [place] for a job that he recently lost.? He plans to return back to [place].? He reports being recent presentations to the hospital and a recent admission 2 weeks ago for similar symptoms.? Did not receive hydrocortisone/prednisone and ran out of his home stock since last admission.? He started experiencing nausea, vomiting, and weakness causing him to come to the ER.? Found to be hypotensive with hyponatremia in the ER.? Medicine consulted for admission, decision made to admit for IV fluids, IV glucocorticoid treatment and close monitoring.? Necessitates acute inpatient admission.? Problems addressed are as follows: Acute adrenal crisis Congenital adrenal hypoplasia Hypotension Patient presented with hypotension, nausea, vomiting, weakness. Concerns for adrenal crisis. Started on IV fluids with boluses in the ER and received 100 mg hydrocortisone IV x1 in the ER. Responded well to this with improvement in blood pressure from systolics in the 80s to 90s. Was started on scheduled 50 mg hydrocortisone every 6 hours IV. Tolerated well overnight. Improvement in blood pressure and hemodynamics. No longer having nausea or vomiting by morning. Transitioned to 5 mg prednisone as this is a regimen he had been on previously. Will be discharged on 5 mg prednisone daily and 0.1 mg fludrocortisone twice a day for mineralocorticoid therapy. ACTH ordered, still pending at discharge. Will need close follow-up with PCP, spoke to his new primary care provider that we will be seeing him later this week. Recommend repeat labs including TSH, A1c, CMP to evaluate electrolytes and other metabolic issues. We will also facilitate referral to endocrinology for further management. SUNIL: Secondary to volume loss in the setting of adrenal insufficiency. Responded well to fluids. Normalized by morning with creatinine of 1.0 and BUN of 13. Hyponatremia: History of adrenal insufficiency. Takes fludrocortisone at home to control electrolytes. Resume fludrocortisone 0.1 mg twice daily on admission. Sodium improved to 134 with stable potassium at 4.1 on morning of discharge. We will continue fludrocortisone 0.1 mg twice a day. Defer further adjustment to endocrinology. Sent with 1 month prescription for this medication. Needs repeat labs in 3 to 4 days to monitor stability of sodium. Marijuana dependence Tobacco dependence Patient education and counseling. No prior history of cannabinoid hyperemesis syndrome. NRT therap
[2022-12-25 07:21] VITALS: TEMP 36.8
--- NOTE | 2022-12-25 07:37 | HMH.PHAINT1 ---
Pharmacy Intervention Comments: Medication reconciliation completed using previous discharge note (12/09/22) and patient interview
[2022-12-25 08:00] VITALS: BP 90/52; PULSE 68; RESP 20; O2SAT 95
--- NOTE | 2022-12-25 08:02 | PC.NURSE ---
Pt c/o urge to smoke. MD notified to give pt Nicotine patch. Take pt out of step down.
--- NOTE | 2022-12-25 09:24 | HMH.PHAINT1 ---
Pharmacy Intervention Comments: Discussed discharge medications with patient. Patient verbalized understanding and had no questions at this time
--- NOTE | 2022-12-25 09:40 | PC.NURSE ---
Pt educated by this nurse and pharmacy. IV DC. Pt left floor accompanied by staff.
--- NOTE | 2022-12-26 13:34 | CARE MANAGER ---
Appointment was obtained for patient at [facility] at discharge for February 22 @ 11:20am. I have attempted to let patient know about appointment and no answer, will call back in the am.
== END 2022-12-25 09:42 | disposition home or self-care (01) ==
LOC: ER 16:07 → 2ND 16:52
PROVIDERS: Admitting Provider Internal Medicine Adolescent Medicine; Emergency Provider Emergency Medicine; Visit Provider Internal Medicine Adolescent Medicine
DX: Q89.1 Congenital malformations of adrenal gland (principal); E27.2 Addisonian crisis; I95.9 Hypotension, unspecified; E87.1 Hypo-osmolality and hyponatremia; E27.49 Other adrenocortical insufficiency; N17.9 Acute kidney failure, unspecified; F17.210 Nicotine dependence, cigarettes, uncomplicated; F12.20 Cannabis dependence, uncomplicated; Z20.822 Contact with and (suspected) exposure to COVID-19
CPT/HCPCS: 36415; 80048; 80053; 80305; 81001; 82962; 83690; 83735; 85025; 99285; C9803; G0378; J2405; U0003; U0005

== ENCOUNTER → 2023-01-01 09:00 | Outpatient (CLI) | payer OTHER, SELFPAY ==
[2023-01-01 09:12] LABS: MANUAL DIFFERENTIAL MANUAL DIFFERENTIAL (MANUAL DIFF)
[2023-01-01 09:31] LABS: Basophils # 0.1 K/mm3 (0-0.2); Eosinophils # 0.5 K/mm3 (0.0-0.4); Eosinophils % 5.3 % (0.1-12.0); Hematocrit 38.7 % (42.0-52.0); Hemoglobin 13.4 g/dL (14.1-18.0); Lymphocytes # 3.7 K/mm3 (0.7-4.5); Lymphocytes % 42.2 % (10-50); Mean Corpuscular HGB Conc 34.5 g/dL (31.8-35.4); Mean Corpuscular Hemoglobin 30.4 pg (27.0-31.2); Mean Corpuscular Volume 88.3 fl (80-94); Mean Platelet Volume 7.9 fl (7.4-10.4); Monocytes # 0.5 K/mm3 (0.1-1.0); Monocytes % 5.2 % (1.7-9.3); Neutrophils # 4.1 K/mm3 (1.8-7.8); Neutrophils % 46.4 % (37.0-80.0); Platelet Count 410 K/mm3 (142-424); Red Blood Count 4.39 M/mm3 (4.60-6.20); Red Cell Distribution Width 12.9 % (11.5-17.5); White Blood Count 8.8 K/mm3 (4.8-10.8)
[2023-01-01 09:37] LABS: Chloride 105 mmol/L (98-107); Sodium 139 mmol/L (136-145)
[2023-01-01 09:38] LABS: Potassium 3.7 mmoL/L (3.5-5.1)
[2023-01-01 09:40] LABS: Alanine Aminotransferase 13 U/L (12-78); Albumin Level 3.9 g/dl (3.5-5.0); Albumin/Globulin Ratio 1.8 (1.1-1.8); Alkaline Phosphatase 51 U/L (38-126); Anion Gap 9.7 mEq/L (5-15); Aspartate Amino Transferase 22 U/L (17-59); Bilirubin,Total 0.5 mg/dl (0.2-1.3); Blood Urea Nitrogen 8 mg/dl (9-20); Carbon Dioxide 28 mmol/L (22.0-30.0); Cholesterol 138 mg/dl (140-200); Estimated Glomerular Filt Rate 78 ml/min (>60); GFR (African American) 94 ML/MIN (>60); Globulin 2.2 g/dL (1.3-3.2); Total Protein,Serum 6.1 g/dl (6.3-8.2); Triglycerides 138 mg/dl (30-150); VLDL Cholesterol 28 mg/dL (0-40)
[2023-01-01 09:41] LABS: Calcium 8.3 mg/dl (8.4-10.2); Chol/HDL Ratio 3.6 (1-3.5); Glucose 81 mg/dl (74-100); HDL Cholesterol 38 mg/dl (40-60)
[2023-01-01 09:52] LABS: Direct LDL Cholesterol 81.93 mg/dL (100-129)
[2023-01-01 09:59] LABS: T4 (Thyroxine) 6.1 ug/dl (5.53-11.0)
[2023-01-01 10:12] LABS: Thyroid Stimulating Hormone 4.88 uIU/mL (0.465-4.68)
[2023-01-01 11:13] LABS: Eosinophils % 2 % (0-3); Lymphocytes % 55 % (10-50); Monocytes % 3 % (2-9); Neutrophils % 40 % (42-76); Platelet Estimate Normal; RBC Morphology Normal; Total Cells Counted 100
[2023-01-06 00:05] LABS: Testosterone, Total, LC/MS 1355.5 ng/dL (264.0-916.0); Testosterone,Free 17.8 pg/mL (8.7-25.1)
== END ==
PROVIDERS: PCP Nurse Practitioner Family; Visit Provider Nurse Practitioner Family
DX: Z00.00 Encounter for general adult medical examination without abnormal findings (principal); E27.40 Unspecified adrenocortical insufficiency; E29.1 Testicular hypofunction; F12.20 Cannabis dependence, uncomplicated; Z13.1 Encounter for screening for diabetes mellitus; Z13.220 Encounter for screening for lipoid disorders
CPT/HCPCS: 80053; 80061; 82024; 84402; 84403; 84436; 84443; 85007; 85014; 85018; 85048; 85049

== ENCOUNTER 2023-01-16 15:08 | Observation (INO) | payer OTHER, SELFPAY ==
[2023-01-16] VITALS (7 sets, daily range): BP systolic 89–115; BP diastolic 34–72; PULSE 62–82; RESP 14–21; TEMP 36.5–37; O2SAT 93–99; BMI 18.4; BMI 19.8
--- NOTE | 2023-01-16 15:08 | ECG_ITS ---
APPROVED REPORT Exam: Resting ECG HR:74 bpm ECG Measurements Heart Rate 74 AXES WI 162 P 45 QRSd 98 QRS 96 QT 414 T -17 QTc 442 Conclusion SINUS RHYTHM BORDERLINE RIGHT AXIS DEVIATION [QRS AXIS > 90] ST DEVIATION AND MODERATE T-WAVE ABNORMALITY, CONSIDER ANTERIOR ISCHEMIA [-0.1+ mV T-WAVE IN V3/V4] ABNORMAL ECG UNCONFIRMED REPORT Electronically signed by : Robert Bolanos MD 01/19/2023 16:45:40
--- NOTE | 2023-01-16 15:15 | XR_ITS ---
FINAL REPORT TECHNIQUE: Chest PA & Lateral CLINICAL HISTORY: CHEST PAIN FINDINGS: 2 views of the chest were performed. The heart size is normal. The mediastinum is within normal limits. There is no acute cardiopulmonary process. There are no pleural effusions. There is no pneumothorax. The bony thorax appears intact. IMPRESSION: No acute cardiopulmonary process. Reviewed, Interpreted and Dictated by Erik Simons MD Transcribed by Tiki Connelly Authenticated and . [facility]
--- NOTE | 2023-01-16 15:30 | PC.NURSE ---
PT TO XR
[2023-01-16 15:31] LABS: Basophils # 0.1 K/mm3 (0-0.2); Basophils % 1.4 % (0.1-2.0); Chloride 97 mmol/L (98-107); Eosinophils # 0.3 K/mm3 (0.0-0.4); Eosinophils % 4.1 % (0.1-12.0); Hematocrit 46.2 % (42.0-52.0); Hemoglobin 15.4 g/dL (14.1-18.0); Lymphocytes # 2.6 K/mm3 (0.7-4.5); Lymphocytes % 35.3 % (10-50); Mean Corpuscular HGB Conc 33.4 g/dL (31.8-35.4); Mean Corpuscular Hemoglobin 30.2 pg (27.0-31.2); Mean Corpuscular Volume 90.3 fl (80-94); Mean Platelet Volume 7.7 fl (7.4-10.4); Monocytes # 0.5 K/mm3 (0.1-1.0); Monocytes % 6.7 % (1.7-9.3); Neutrophils # 3.9 K/mm3 (1.8-7.8); Neutrophils % 52.5 % (37.0-80.0); Platelet Count 347 K/mm3 (142-424); Red Blood Count 5.11 M/mm3 (4.60-6.20); Red Cell Distribution Width 13.7 % (11.5-17.5); White Blood Count 7.4 K/mm3 (4.8-10.8)
[2023-01-16 15:32] LABS: Potassium 4.8 mmoL/L (3.5-5.1); Sodium 130 mmol/L (136-145)
[2023-01-16 15:34] LABS: Alanine Aminotransferase 13 U/L (12-78); Anion Gap 9.8 mEq/L (5-15); Aspartate Amino Transferase 33 U/L (17-59); Blood Urea Nitrogen 16 mg/dl (9-20); Carbon Dioxide 28 mmol/L (22.0-30.0); Creatinine Clearance Estimated 73 mL/min (50-200); Estimated Glomerular Filt Rate 64 ml/min (>60); GFR (African American) 77 ML/MIN (>60)
[2023-01-16 15:35] LABS: Albumin Level 4.4 g/dl (3.5-5.0); Albumin/Globulin Ratio 1.6 (1.1-1.8); Alkaline Phosphatase 58 U/L (38-126); Calcium 8.9 mg/dl (8.4-10.2); Globulin 2.7 g/dL (1.3-3.2); Glucose 95 mg/dl (74-100); Total Protein,Serum 7.1 g/dl (6.3-8.2)
--- NOTE | 2023-01-16 15:37 | HMH.EDGENADL ---
Discharge Plan Disposition Chief Complaint: Chest Pain Prescriptions Prescriptions: No Action testosterone cypionate 100 mg/mL oil 100 mg IM QMONTH fludrocortisone 0.1 mg tablet 0.1 mg PO BID 30 Days Qty: 60 0RF prednisone 5 mg tablet 5 mg PO DAILY 30 Days Qty: 30 0RF Referrals Follow up/Referrals: Provider,Referral, [Primary Care Provider] - See instructions Discharge ED Provider: Danny Ruiz General Adult HPI General Chief complaint: Chest Pain Stated complaint: CHEST PAIN Time Seen by Provider: 01/16/23 15:37 Mode of Arrival: Ambulatory Limitations: No Limitations Description of Symptoms (Recalled from ER Triage Doc. by RN): PT WITH C/O CHEST PAIN WITH STANDING, STARTED LAST NIGHT, REPORTS SHORTNESS OF BREATH AND VOMITING History of Present Illness HPI narrative: Patient is a 33-year-old male with a history of congenital adrenal hypoplasia presenting today with what he feels like his adrenal crisis. States has had some nausea and vomiting at home and he normally takes prednisone and mineralocorticoid at home however due to his vomiting been able to keep down. States that he was most recently admitted a month ago and this is happened intermittently since he was a kid. 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 Denies any other symptoms outside of what he normally has experience with an adrenal crisis. Related Data Home Medications Medication Instructions Recorded Confirmed testosterone cypionate 100 mg/mL 100 mg IM QMONTH 01/01/23 01/01/23 intramuscular oil Previous Rx's Medication Instructions Recorded fludrocortisone 0.1 mg tablet 0.1 mg PO BID adrenal 12/25/22 insufficiency 30 days #60 tabs prednisone 5 mg tablet 5 mg PO DAILY 30 days #30 tabs 12/25/22 Allergies Allergy/AdvReac Type Severity Reaction Status Date / Time phenobarbital Allergy Verified 01/01/23 08:27 [facility] Disclaimer: The information contained in this section may have been updated after the patient was seen, as this information can be updated by other users. Medical History Adrenal insufficiency Congenital adrenal hyperplasia Marijuana dependence Surgical History No pertinent past surgical history Family History Other No significant family history Social History (Updated 01/16/23 @ 15:19 by Chio Moore RN) Smoking Status: Current every day smoker alcohol intake: current current occupational status: employed Travel in the last 8 weeks: [place] the [place] ROS Obtained: Yes All systems reviewed & no additional complaints except as documented Physical Exam General General appearance: alert Respiratory Respiratory exam: Present normal lung sounds bilaterally Cardiovascular Cardiovascular exam: Present regular rate; Absent tachycardia Abdominal Exam Abdominal exam: Present soft; Absent distention or tenderness Neurological Exam Neurological exam: Present alert and oriented X3 Medical Decision Making Haile Inquiry Pt receiving controlled substance: No Vital Signs: 01/16/23 15:08 Temperature 98.6 F Temperature Source Oral Pulse Rate [Apical] 82 Respiratory Rate 18 Blood Pressure [Right Arm] 101/63 L Blood Pressure Mean [Right Arm] 75 Blood Pressure Source [Right Arm] Automatic Cuff Blood Pressure Position [Right Arm] Sitting 02 Sat by Pulse Oximetry 99 Oxygen Delivery Method Room Air Lab Data Lab results reviewed: Yes I reviewed the patient's lab results. Lab Results 01/16/23 15:10: WBC 7.4, RBC 5.11, Hgb 15.4, Hct 46.2, MCV 90.3, MCH 30.2, MCHC 33.4, RDW 13.7, Plt Count 347, MPV 7.7, Neut % (Auto) 52.5, Lymph % (Auto) 35.3, [place] % (Auto) 6.7, Eos % (Auto) 4.1, Baso % (Auto) 1.4, Neut # (Auto) 3.9, Lymph # (Auto) 2.6, [place] # (Auto) 0.5, Eos # (Auto
--- NOTE | 2023-01-16 15:37 | PC.NURSE ---
PT RETURNED FROM XR
--- NOTE | 2023-01-16 15:38 | PC.NURSE ---
From XR via wheelchair
--- NOTE | 2023-01-16 15:38 | PC.NURSE ---
MICHAEL ASHLEY at for pt raeganal
--- NOTE | 2023-01-16 15:38 | PC.NURSE ---
DR DIAZ AT BEDSIDE
[2023-01-16 15:47] LABS: Troponin I < 0.01 ng/ml (0.00-0.034)
--- NOTE | 2023-01-16 16:14 | PC.NURSE ---
PT RESTING IN BED TALKING ON PHONE, NO NEEDS AT THIS TIME
--- NOTE | 2023-01-16 16:16 | PC.NURSE ---
rad states sending down preliminary result on pt
--- NOTE | 2023-01-16 16:59 | PC.NURSE ---
notified powerhouse operator of admission
--- NOTE | 2023-01-16 17:03 | EXP.HP ---
[facility] Disclaimer: The information contained in this section may have been updated after the patient was seen, as this information can be updated by other users. Medical History (Updated 01/16/23 @ 16:58 by Mar Ruiz MD) Adrenal insufficiency Congenital adrenal hyperplasia Marijuana dependence Surgical History No pertinent past surgical history Family History Other No significant family history Social History (Updated 01/16/23 @ 15:19 by Chio Moore, DONNIE) Smoking Status: Current every day smoker alcohol intake: current current occupational status: employed Travel in the last 8 weeks: Inside the [place] Meds Home Medications and Allergies Home Medications Medication Instructions Recorded Confirmed Type fludrocortisone 0.1 mg tablet 0.1 mg PO BID adrenal 12/25/22 01/01/23 Rx insufficiency 30 days #60 tabs prednisone 5 mg tablet 5 mg PO DAILY 30 days #30 tabs 12/25/22 01/01/23 Rx testosterone cypionate 100 mg/mL 100 mg IM QMONTH 01/01/23 01/01/23 History intramuscular oil New Prescriptions to Start Prescriptions: Allergies Allergy/AdvReac Type Severity Reaction Status Date / Time phenobarbital Allergy Verified 01/01/23 08:27 Exam Data for Last 24 hours Vital signs and Labs for Last 24 Hours: Temp Pulse Resp BP Pulse Ox 98.6 F 82 18 101/63 L 99 01/16/23 15:08 01/16/23 15:08 01/16/23 15:08 01/16/23 15:08 01/16/23 15:08 Laboratory Results - last 24 hr 01/16/23 15:10: WBC 7.4, RBC 5.11, Hgb 15.4, Hct 46.2, MCV 90.3, MCH 30.2, MCHC 33.4, RDW 13.7, Plt Count 347, MPV 7.7, Neut % (Auto) 52.5, Lymph % (Auto) 35.3, [place] % (Auto) 6.7, Eos % (Auto) 4.1, Baso % (Auto) 1.4, Neut # (Auto) 3.9, Lymph # (Auto) 2.6, [place] # (Auto) 0.5, Eos # (Auto) 0.3, Baso # (Auto) 0.1 01/16/23 15:10: Sodium 130 L, Potassium 4.8, Chloride 97 L, Carbon Dioxide 28, Anion Gap 9.8, BUN 16, Creatinine 1.30 H, Estimated Creat Clear 73, Estimated GFR 64, Est GFR ( Amer) 77, Glucose 95, Calcium 8.9, Total Bilirubin 1.0, AST 33, ALT 13, Alkaline Phosphatase 58, Troponin I < 0.01, Total Protein 7.1, Albumin 4.4, Globulin 2.7, Albumin/Globulin Ratio 1.6 I & O for Last 24 hours: Intake & Output 01/13/23 01/14/23 01/15/23 01/16/23 23:59 23:59 23:59 23:59 Weight 63.503 kg
[2023-01-16 17:07] LABS: Phosphorous 4.1 mg/dl (2.5-4.5)
[2023-01-16 17:17] LABS: Coronavirus 19, PCR Not Detected (NotDetected); Influenza A, PCR Not Detected (NotDetected); Influenza B, PCR Not Detected (NotDetected)
--- NOTE | 2023-01-16 17:41 | PC.NURSE ---
REPORT GIVEN TO Janell HARTMAN RN
--- NOTE | 2023-01-16 17:48 | PC.NURSE ---
PT UPDATED ON POC, NO NEEDS AT THIS TIME
--- NOTE | 2023-01-16 18:07 | PC.NURSE ---
REGULAR DIET TRAY ORDERED FOR PT
--- NOTE | 2023-01-16 18:11 | PC.NURSE ---
notified second floor staff pt covid swab is resulted.
--- NOTE | 2023-01-16 19:50 | EXP.HP ---
History of Present Illness *Admission Date: 01/16/23 *Reason for visit:: Nausea, Vomiting *History of present illness: Mr. Kendrick is a 33-year-old male with a past medical history of Congenital Adrenal Hypoplasia. He presents to [facility] due to a two-day history of nausea and vomiting. He denies diarrhea. He reports that he has been unable to take his medications for Adrenal Insufficieny for the last two days due to persistent vomiting. He reports that his girlfriend's mother had the same symptoms. He denies any over the counter medications for his symptoms. In the ER, blood pressure was low at 89/55. Sodium was low at 130. Glucose was 95. Creatinine was 1.30. In the ER the patient received Hydrocortisone 100 mg iv x 1. Zofran and IV fluid x 1 L. He was admitted with initial impression: Acute Adrenal Crisis. [facility] Disclaimer: The information contained in this section may have been updated after the patient was seen, as this information can be updated by other users. Medical History Adrenal insufficiency Congenital adrenal hyperplasia Marijuana dependence Surgical History No pertinent past surgical history Family History Other No significant family history Social History Smoking Status: Current every day smoker alcohol intake: current current occupational status: employed Travel in the last 8 weeks: Inside the [place] Review of Systems Review of Systems Review of systems:: pertinent systems reviewed and negative unless documented below Constitutional Constitutional: Reports system reviewed and no additional complaints, except as documented and Reports fatigue Eyes Eyes: Reports system reviewed and no additional complaints, except as documented ENT Ears, Nose, Mouth, and Throat: Reports system reviewed and no additional complaints, except as documented *Cardiovascular Cardiovascular: Reports system reviewed and no additional complaints, except as documented *Respiratory Respiratory: Reports system reviewed and no additional complaints, except as documented *Gastrointestinal Gastrointestinal: Reports nausea and Reports vomiting *Genitourinary Genitourinary: Reports system reviewed and no additional complaints, except as documented *Musculoskeletal Musculoskeletal: Reports system reviewed and no additional complaints, except as documented Integumentary/Breasts Skin/Breast: Reports system reviewed and no additional complaints, except as documented *Neurologic Neurologic: Reports system reviewed and no additional complaints, except as documented Psychiatric Psychiatric: Reports system reviewed and no additional complaints, except as documented Endocrine Endocrine: Reports fatigue Hematologic/Lymphatic Hematologic/Lymphatic: Reports system reviewed and no additional complaints, except as documented Allergic/Immunologic Allergic/Immunologic: Reports system reviewed and no additional complaints, except as documented Meds Home Medications and Allergies Home Medications Medication Instructions Recorded Confirmed Type fludrocortisone 0.1 mg tablet 0.1 mg PO BID adrenal 01/17/23 Rx insufficiency 30 days #60 tabs prednisone 5 mg tablet 5 mg PO DAILY Adrenal 01/17/23 Rx insufficiency 30 days #30 tabs New Prescriptions to Start Prescriptions: marydrocorOmid Perez prednisone Omid Esposito Allergies Allergy/AdvReac Type Severity Reaction Status Date / Time phenobarbital Allergy Verified 01/01/23 08:27 Exam Data for Last 24 hours Vital signs and Labs for Last 24 Hours: Temp Pulse Resp BP Pulse Ox 97.9 F 68 17 115/72 93 L 01/16/23 18:20 01/16/23 18:20 01/16/23 18:20
--- NOTE | 2023-01-16 23:14 | PC.NURSE ---
Pt refused heparin injection
[2023-01-17 04:00] VITALS: BP 105/63; PULSE 72; RESP 16; TEMP 36.7; O2SAT 98; BMI 20.2
[2023-01-17 06:22] LABS: Alanine Aminotransferase 20 U/L (12-78); Albumin Level 3.4 g/dl (3.5-5.0); Albumin/Globulin Ratio 1.5 (1.1-1.8); Alkaline Phosphatase 42 U/L (38-126); Anion Gap 11.6 mEq/L (5-15); Aspartate Amino Transferase 37 U/L (17-59); Bilirubin,Total 0.6 mg/dl (0.2-1.3); Blood Urea Nitrogen 12 mg/dl (9-20); Calcium 7.6 mg/dl (8.4-10.2); Carbon Dioxide 22 mmol/L (22.0-30.0); Chloride 105 mmol/L (98-107); Creatinine Clearance Estimated 115 mL/min (50-200); Estimated Glomerular Filt Rate 97 ml/min (>60); GFR (African American) 118 ML/MIN (>60); Globulin 2.2 g/dL (1.3-3.2); Glucose 156 mg/dl (74-100); Magnesium 1.7 mg/dl (1.6-2.3); Potassium 4.6 mmoL/L (3.5-5.1); Sodium 134 mmol/L (136-145); Total Protein,Serum 5.6 g/dl (6.3-8.2)
[2023-01-17 06:23] LABS: Basophils % 0.3 % (0.1-2.0); Eosinophils % 0.6 % (0.1-12.0); Hematocrit 37.1 % (42.0-52.0); Lymphocytes # 1.1 K/mm3 (0.7-4.5); Lymphocytes % 19.1 % (10-50); Mean Corpuscular HGB Conc 31.9 g/dL (31.8-35.4); Mean Corpuscular Hemoglobin 29.4 pg (27.0-31.2); Mean Platelet Volume 7.9 fl (7.4-10.4); Monocytes # 0.2 K/mm3 (0.1-1.0); Monocytes % 3.6 % (1.7-9.3); Neutrophils # 4.3 K/mm3 (1.8-7.8); Neutrophils % 76.3 % (37.0-80.0); Platelet Count 294 K/mm3 (142-424); Red Blood Count 4.04 M/mm3 (4.60-6.20); Red Cell Distribution Width 13.7 % (11.5-17.5); White Blood Count 5.6 K/mm3 (4.8-10.8)
[2023-01-17 06:25] LABS: Hemoglobin 11.9 g/dL (14.1-18.0)
--- NOTE | 2023-01-17 06:32 | PC.NURSE ---
pt had no complaints this shift. Ambulates independently in room. Remains on RA. LR bolus received and maintenance LR infusing at 100 ml/hr per MAR.
[2023-01-17 08:00] VITALS: BP 101/72; PULSE 75; RESP 18; TEMP 36.7; O2SAT 95
--- NOTE | 2023-01-17 09:10 | HMH.PHAINT1 ---
Pharmacy Intervention Comments: Reconciled patient's home medications using patient interview and pharmacy fill history.
--- NOTE | 2023-01-17 10:22 | EXP.DC.SUM ---
General Admission date:: 01/16/23 Discharge date: 01/17/23 HPI HPI HPI: Mr. Kendrick is a 33-year-old male with a past medical history of Congenital Adrenal Hypoplasia. He presents to [facility] due to a two-day history of nausea and vomiting.? He denies diarrhea.? He reports that he has been unable to take his medications for Adrenal Insufficieny for the last two days due to persistent vomiting.? He reports that his girlfriend's mother had the same symptoms.? He denies any over the counter medications for his symptoms. In the ER, blood pressure was low at 89/55.? Sodium was low at 130.? Glucose was 95.? Creatinine was 1.30.? In the ER the patient received Hydrocortisone 100 mg iv x 1.? Zofran and IV fluid x 1 L.? He was admitted with initial impression:? Acute Adrenal Crisis.? Hospital Course Hospital Course Hospital Course: Patient presented with nausea, vomiting, weakness.? Concerns for adrenal crisis.? Started on IV fluids with boluses in the ER and received 100 mg hydrocortisone IV x1 in the ER.? Responded well to this with improvement in blood pressure and electrolytes. Transition to home regimen of fludrocortisone and prednisone. Tolerating p.o. intake. Electrolytes normalized by morning. No longer having nausea or vomiting by morning.? Plan to continue on 5 mg prednisone daily and 0.1 mg fludrocortisone twice a day for mineralocorticoid therapy.? Testosterone and cortisol levels pending on day of discharge. Plan to follow-up with PCP in the next 1 to 2 weeks for close monitoring. Has a scheduled appointment with endocrinology within the next month. SUNIL:?Secondary to volume loss in the setting of adrenal insufficiency.? Responded well to fluids.? Normalized by morning. Hyponatremia:?History of adrenal insufficiency.? Takes fludrocortisone at home to control electrolytes.? Resume fludrocortisone 0.1 mg twice daily on admission.? Sodium improved to 134 with stable potassium on morning of discharge.? We will continue fludrocortisone 0.1 mg twice a day.? Defer further adjustment to endocrinology.? Sent with 1 month prescription for this medication.? Needs repeat labs in 3 to 4 days to monitor stability of sodium. Marijuana dependence Tobacco dependence Patient education and counseling. No prior history of cannabinoid hyperemesis syndrome.? NRT therapy while admitted. Exam Data for Last 24 hours Vital signs and Labs for Last 24 Hours: Temp Pulse Resp BP Pulse Ox 98.1 F 75 18 101/72 L 95 01/17/23 08:00 01/17/23 08:00 01/17/23 08:00 01/17/23 08:00 01/17/23 08:00 Laboratory Results - last 24 hr 01/16/23 15:10: WBC 7.4, RBC 5.11, Hgb 15.4, Hct 46.2, MCV 90.3, MCH 30.2, MCHC 33.4, RDW 13.7, Plt Count 347, MPV 7.7, Neut % (Auto) 52.5, Lymph % (Auto) 35.3, [place] % (Auto) 6.7, Eos % (Auto) 4.1, Baso % (Auto) 1.4, Neut # (Auto) 3.9, Lymph # (Auto) 2.6, [place] # (Auto) 0.5, Eos # (Auto) 0.3, Baso # (Auto) 0.1 01/16/23 15:10: Sodium 130 L, Potassium 4.8, Chloride 97 L, Carbon Dioxide 28, Anion Gap 9.8, BUN 16, Creatinine 1.30 H, Estimated Creat Clear 73, Estimated GFR 64, Est GFR ( Amer) 77, Glucose 95, Calcium 8.9, Total Bilirubin 1.0, AST 33, ALT 13, Alkaline Phosphatase 58, Troponin I < 0.01, Total Protein 7.1, Albumin 4.4, Globulin 2.7, Albumin/Globulin Ratio 1.6 01/16/23 15:10: Phosphorus 4.1, Magnesium 2.0 01/16/23 16:57: SARS-CoV-2 (PCR) Not detected, Influenza A Untype (PCR) Not detected, Influenza Type B (PCR) Not detected 01/17/23 05:53: WBC 5.6, RBC 4.04 L, Hgb 11.9 L D, Hct 37.1 L, MCV 92.0, MCH 29.4, MCHC 31.9, RDW 13.7, Plt Count 294, MPV 7.9, Neut % (Auto) 76.3, Lymph % (Auto) 19.1, [place] % (Auto) 3.6, Eos % (Auto) 0.6, Baso % (Auto) 0.3, Neut # (Auto) 4.3, Lymph # (Auto) 1.1, [place] # (Auto) 0.2, Eos # (Auto) 0.0, Baso # (Auto) 0.0 01/17/23 05:53: Sodium 134 L, Potassium 4.6, Chloride 105, Carbon Dioxide 22, Anion Gap 11.6, BUN 12, Creatinine 0.90 D, Estimated Creat Clear 115, Estimated GFR 97, Est GFR
--- NOTE | 2023-01-19 14:09 | CARE MANAGER ---
Attempted to contact patient related to hospital discharge x 2. No Vm option.
[2023-01-22 06:08] LABS: Testosterone, Total, LC/MS 136.6 ng/dL (264.0-916.0); Testosterone,Free 0.2 pg/mL (8.7-25.1)
== END 2023-01-17 10:59 | disposition home or self-care (01) ==
LOC: ER 16:58 → 2ND 17:10
PROVIDERS: Student in an Organized Health Care Education/Training Program; Admitting Provider Internal Medicine Adolescent Medicine; Emergency Provider Ophthalmology; Visit Provider Internal Medicine Adolescent Medicine
DX: E27.2 Addisonian crisis (principal); A08.4 Viral intestinal infection, unspecified; N17.9 Acute kidney failure, unspecified; E87.1 Hypo-osmolality and hyponatremia; R11.2 Nausea with vomiting, unspecified; Z79.899 Other long term (current) drug therapy; F17.210 Nicotine dependence, cigarettes, uncomplicated
CPT/HCPCS: 36415; 71046; 80053; 82533; 83735; 84100; 84402; 84403; 84484; 85025; 93005; 99285; C9803; G0378; J2405; U0003; U0005